=== PATIENT | male | born 1990 | race African-American/Black ===

== ENCOUNTER 2017-07-16 23:35 | Emergency (ER) | payer MEDICAID ==
[~2017-07-16] VITALS: Ht 175.3 cm; Wt 65.8 kg
[2017-07-16 23:41] VITALS: BP 111/71
== END 2017-07-16 23:52 ==
LOC: ER 23:40
DX: S80.212A Abrasion, left knee, initial encounter (principal); S50.312A Abrasion of left elbow, initial encounter; X58.XXXA Exposure to other specified factors, initial encounter; Y93.01 Activity, walking, marching and hiking; Y92.89 Other specified places as the place of occurrence of the external cause; Y99.8 Other external cause status; Z88.6 Allergy status to analgesic agent; Z88.8 Allergy status to other drugs, medicaments and biological substances